=== PATIENT | male | born 1985 | race American Indian/Alaskan Native ===

== ENCOUNTER 2017-04-08 13:06 | Emergency (ER) | payer BC, OTHER ==
--- NOTE | 2017-04-08 13:23 | ED PDOC ---
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 04/08/17 13:36 Time/Duration: Other (2 weeks) Symptom Onset: Gradual Symptom Course: Intermittent Severity Level: 3 Activities at Onset: Rest Context: Sitting Past Medical History - Provider Review Nursing Documentation Reviewed: Yes - Travel History Have you recently traveled outside [place] w/in the past 3 mons?: No - Infectious Disease Hx of Infectious Diseases: None - Cardiac Hx Cardiac Disorders: Yes Hx Hypertension: Yes - Pulmonary Hx Respiratory Disorders: No - Neurological Hx Neurological Disorder: No - HEENT Hx HEENT Disorder: Yes Other/Comment: glasses - Renal Hx Renal Disorder: Yes Other/Comment: nephrotic syndrome - Endocrine/Metabolic Hx Endocrine Disorders: No - Hematological/Oncological Hx Blood Disorders: No - Integumentary Hx Dermatological Disorder: No - Musculoskeletal/Rheumatological Hx Musculoskeletal Disorders: No - Gastrointestinal Hx Gastrointestinal Disorders: No - Genitourinary/Gynecological Hx Genitourinary Disorders: No - Psychiatric Hx Psychophysiologic Disorder: No Hx Substance Use: No - Surgical History Other/Comment: ablasion 2017. b/l ankle surgery with screw placements - Anesthesia Hx Anesthesia: Yes Hx Anesthesia Reactions: No Family/Social History - Physician Review Nursing Documentation Reviewed: Yes Family/Social History: No Known Family HX Smoking Status: Never Smoked Hx Alcohol Use: No Hx Substance Use: No Allergies/Home Meds Allergies/Adverse Reactions: Allergies No Known Allergies Allergy (Verified 04/08/17 13:09) Home Medications: Home Meds Medication Instructions Recorded Confirmed Enalapril Maleate [Vasotec] 20 mg PO BID 04/08/17 04/08/17 Fenofibrate [Tricor] 145 mg PO DAILY 04/08/17 04/08/17 Review of Systems - Review of Systems Constitutional: Normal Eyes: Normal ENT: Normal Respiratory: Normal Cardiovascular: Normal Gastrointestinal: Normal Genitourinary Male: Normal Musculoskeletal: Normal, Other Skin: Normal Neurological: Dizziness (dizziness/lightheaded) Endocrine: Normal Hemo/Lymphatic: Normal Psychiatric: Normal Physical Exam Vital Signs Reviewed: Yes Vital Signs Temp Pulse Resp BP Pulse Ox 04/08/17 15:12 71 18 108/59 L 99 04/08/17 13:35 97.8 F 04/08/17 13:09 88 18 113/82 98 Temperature: Afebrile Blood Pressure: Normal Pulse: Regular Respiratory Rate: Normal Appearance: Positive for: Well-Appearing, Non-Toxic, Comfortable Pain Distress: None Mental Status: Positive for: Alert and Oriented X 3 - Systems Exam Head: Present: Atraumatic, Normocephalic Pupils: Present: PERRL Extroacular Muscles: Present: EOMI Conjunctiva: Present: Normal Ears: Present: Normal Mouth: Present: Moist Mucous Membranes Pharnyx: Present: Normal Nose (External): Present: Atraumatic Nose (Internal): Present: Normal Inspection Neck: Present: Normal Range of Motion Respiratory/Chest: Present: Clear to Auscultation, Good Air Exchange Cardiovascular: Present: Regular Rate and Rhythm Abdomen: No: Tenderness, Distention, Normal Bowel Sounds, Peritoneal Signs, Rebound, Guarding, McBurney's Point Tender, Rovsing's Sign Present, Hernias, Feeding Tubes, Ostomy Tubes, Mass/Organomegaly, Scars, Other Back: Present: Normal Inspection Upper Extremity: Present: Normal Inspection Lower Extremity: Present: Normal Inspection Neurological: Present: GCS=15, CN II-XII Intact, Speech Normal, Motor Func Grossly Intact, Other (negative nystagmus) Skin: Present: Warm, Normal Color Psychiatric: Present: Alert, Oriented x 3, Normal Insight, Normal Concentration Medical Decision Making ED Course and Treatment: you were treated in the ED today for 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 You were otherwise breathing easily, pink moist lips, smiling and talking with your girlfriend, good strength/sensation, alert/oriented, walking easily, clear lungs, no abdomen tenderness, no fever temp 97.8, stable heart rate 88, stable breathing rate 18, excellent oxygen level 98% room air, elevated blood pressure 113/82 which we recommend repeat in 2-3 days primary care office to determine further treatment, you have blood tests no infection count 4, stable blood level hemoglobin 16/platelets 195, stable chemistry, mildly elevated creatinine 1.9 which is around your stated baseline of 2.0, glucose 88 stable, magnesium 1.6 which was mildly low and supplemented, stable liver tests, heart blood test normal less than 0.01, mild total creatinine kinease 438 with intravenous fluids hydration, urine test no acute, ECG normal sinus rhythm, intravenous and oral hydration and observation done in the ED with improvement, had a long conversation with Dr. Moss who notified us of your case and discussed with Dr. Díaz after evaluation and he stated can be discharged with followup in his office 1-2 days, counselled to stay hydrated and thus discharged home with girlfriend. 1. Recommend regular oral hydration. 2. 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 3. If any worsening pain, fever, chills, nausea, vomiting, difficulty breathing, numbness, loss of limb function, pain with urination or any medical condition then return to the ED. 04/08/17 13:18 04/08/17 13:19 d/w Dr. 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 Dr. Díaz pt is to see and call him for update on the patient. 04/08/17 13:34 PERC negative 04/08/17 13:36 04/08/17 14:33 04/08/17 15:24 04/08/17 15:30 04/08/17 15:32 04/08/17 15:36 - Lab Interpretations Lab Results: 04/08/17 13:40 04/08/17 13:40 Lab Results 04/08/17 14:21: Urine Color Straw, Urine Appearance Clear, Urine pH 6.0, Ur Specific [place] 1.010, Urine Protein 30 H, Urine Glucose (UA) Negative, Urine Ketones Negative, Urine Blood Negative, Urine Nitrate Negative, Urine Bilirubin Negative, Urine Urobilinogen 0.2, Ur Leukocyte Esterase Negative, Urine RBC 0 - 2, Urine WBC Negative, Ur Epithelial Cells 0 - 2, Urine Bacteria Neg 04/08/17 13:40: Sodium 138, Potassium 4.4, Chloride 102, Carbon Dioxide 26, Anion Gap 15, BUN 26 H, Creatinine 1.9 H, Est GFR ( Amer) 50, Est GFR ( Non-Af Amer) 41, Random Glucose 88, Calcium 10.2, Magnesium 1.6 L, Total Bilirubin 0.4, AST 45, ALT 49, Alkaline Phosphatase 36 L, Lactate Dehydrogenase 449, Total Creatine Kinase 438 H, CK-MB (CK-2) 2.9, CK-MB (CK-2) % Cancelled, Troponin I < 0.01, Total Protein 7.3, Albumin 4.2, Globulin 3.1, Albumin/ Globulin Ratio 1.4 04/08/17 13:40: PT 11.3, INR 0.98, APTT 30.5 04/08/17 13:40: WBC 4.2 L, RBC 5.51, Hgb 16.9, Hct 48.7, MCV 88.4, MCH 30.7, MCHC 34.7, RDW 13.4, Plt Count 195, MPV 11.5 H, Gran % 48.5 L, Lymph % (Auto) 41.6 H, [place] % (Auto) 7.9 H, Eos % (Auto) 1.0 L, Baso % (Auto) 1.0, Gran # 2.03 , Lymph # 1.7, [place] # 0.3, Eos # 0.0, Baso # 0.04 - EKG Interpretation Interpreted by ED Physician: Yes (normal sinus rhythm) Type: 12 lead EKG - Medication Orders Current Medication Orders: Magnesium Sulfate/Dextrose (Magnesium Sulfate 1 Gm/100 Ml D5w) 1 gm in 100 mls @ 100 mls/hr IVPB ONCE ONE Stop: 04/08/17 15:35 Last Admin: 04/08/17 15:07 Dose: 100 mls/hr eMAR Start Stop Document 04/08/17 15:07 SRE (Rec: 04/08/17 15:07 SRE [id number]) Intravenous Solution Start Date 04/08/17 Start Time 15:07 End Date 04/08/17 End time 16:00 Total Infusion Time 53 Disposition/Present on Arrival - Present on Arrival Any Indicators Present on Arrival: No History of DVT/PE: No History of Uncontrolled Diabetes: No Urinary Catheter: No History of Decub. 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 You were otherwise breathing easily, pink moist lips, smiling and talking with your girlfriend, good strength/sensation, alert/oriented, walking easily, clear lungs, no abdomen tenderness, no fever temp 97.8, stable heart rate 88, stable breathing rate 18, excellent oxygen level 98% room air, elevated blood pressure 113/82 which we recommend repeat in 2-3 days primary care office to determine further treatment, you have blood tests no infection count 4, stable blood level hemoglobin 16/platelets 195, stable chemistry, mildly elevated creatinine 1.9 which is around your stated baseline of 2.0, glucose 88 stable, magnesium 1.6 which was mildly low and supplemented, stable liver tests, heart blood test normal less than 0.01, mild total creatinine kinease 438 with intravenous fluids hydration, urine test no acute, ECG normal sinus rhythm, intravenous and oral hydration and observation done in the ED with improvement, had a long conversation with Dr. Moss who notified us of your case and discussed with Dr. Díaz after evaluation and he stated can be discharged with followup in his office 1-2 days, counselled to stay hydrated and thus discharged home with girlfriend. 1. Recommend regular oral hydration. 2. 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 3. If any worsening pain, fever, chills, nausea, vomiting, difficulty breathing, numbness, loss of limb function, pain with urination or any medical condition then return to the ED. Referrals: Dilan Puga MD [Primary Care Provider] - Follow up with primary Forms: [id number] (Bengali)
[2017-04-08 13:35] VITALS: RESP 18; TEMP 97.8
[2017-04-08 14:08] LABS: ALB/GLOB RATIO 1.4 (1.1-1.8); ALBUMIN 4.2 g/dL (3.0-4.8); ALT/SGPT 49 U/L (7-56); AST/SGOT 45 U/L (17-59); BLOOD UREA NITROGEN 26 mg/dL (7-21); CALCIUM 10.2 mg/dL (8.4-10.5); GFR AFRICAN-AMERICAN 50; GFR NON-AFRICAN AMERICAN 41; MAGNESIUM 1.6 mg/dL (1.7-2.2)
[2017-04-08 14:11] LABS: BASO # 0.04 K/mm3 (0.0-2.0); GRAN # 2.03 (1.4-6.5); GRAN % 48.5 % (50.0-68.0); HEMOGLOBIN 16.9 g/dL (14.0-18.0); LYMPH # 1.7 (1.2-3.4); LYMPH % 41.6 % (22.0-35.0); MEAN CELL VOLUME 88.4 fl (80.0-105.0); MEAN CORPUSCULAR HEMOGLOBIN 30.7 pg (25.0-35.0); MEAN CORPUSCULAR HGB CONC 34.7 g/dl (31.0-37.0); MEAN PLATELET VOLUME 11.5 fl (7.0-11.0); MONO # 0.3 (0.1-0.6); MONO % 7.9 % (1.0-6.0); RBC 5.51 10^6/uL (3.5-6.1); RED CELL DISTRIBUTION WIDTH 13.4 % (11.5-14.5); WHITE BLOOD COUNT 4.2 10^3/ul (4.5-11.0)
[2017-04-08 14:15] LABS: INR 0.98 (0.93-1.08); PARTIAL THROMBOPLASTIN TIME 30.5 Seconds (25.1-36.5); PROTHROMBIN TIME 11.3 SECONDS (9.4-12.5)
[2017-04-08 14:18] LABS: TROPONIN I < 0.01 ng/mL
[2017-04-08] MEDS ORDERED: Magnesium Sulfate 1 gm in D5W 1 GM/100 ML BAG IVPB ONE (14:36)
[2017-04-08 14:37] LABS: CK-MB 2.9 ng/mL (0.0-3.6)
[2017-04-08 14:41] LABS: URINE BILIRUBIN NEGATIVE (NEGATIVE); URINE BLOOD NEGATIVE (NEGATIVE); URINE GLUCOSE (UA) NEGATIVE (NEGATIVE); URINE LEUKOCYTE ESTERASE NEGATIVE Leu/uL (NEGATIVE); URINE NITRATE NEGATIVE (NEGATIVE); URINE PROTEIN 30 mg/dL (<30 mg/dL); URINE UROBILINOGEN 0.2 E.U./dL (<1 E.U./dL)
[2017-04-08 14:42] LABS: URINE APPEARANCE CLEAR (CLEAR); URINE COLOR STRAW (YELLOW)
[2017-04-08 14:48] LABS: URINE BACTERIA NEG (NEG); URINE EPITHELIAL CELLS 0 - 2 /hpf (0-5); URINE RBC 0 - 2 /hpf (0-2); URINE WBC NEGATIVE /hpf (0-6)
[2017-04-08 15:12] VITALS: O2SAT 99
[2017-04-08] MEDS ORDERED: Sodium Chloride 0.9% 1,000 ML IV STA (15:28)
[2017-04-08 16:33] VITALS: BP 124/68; PULSE 72
--- NOTE | 2017-04-09 13:12 | CARD ---
APPROVED REPORT EKG Measurement Heart [id number] <Conclusion> Normal sinus rhythm Normal ECG
== END 2017-04-08 16:33 | disposition home or self-care (01) ==
LOC: ED 13:06
DX: R42 Dizziness and giddiness (principal); E86.0 Dehydration; I10 Essential (primary) hypertension; Z98.890 Other specified postprocedural states
CPT/HCPCS: 80053; 81001; 82550; 82553; 83615; 83735; 84484; 85025; 85610; 85730; 87086; 93005; 96361; 96365; 99285; J3475; J7040